=== PATIENT | male | born 1945 | race Caucasian/White ===

== ENCOUNTER → 2016-09-27 | Outpatient (CLI) | payer MEDICARE | END | disposition home or self-care (01) | LOC: GMAB 10:25 | PROVIDERS: ATTEND Family Medicine | DX: Z12.5 Encounter for screening for malignant neoplasm of prostate (principal); I10 Essential (primary) hypertension; Z85.038 Personal history of other malignant neoplasm of large intestine; Z77.21 Contact with and (suspected) exposure to potentially hazardous body fluids | CPT/HCPCS: 82378; 84443; 86803; G0103 ==

== ENCOUNTER → 2017-10-02 | Outpatient (CLI) | payer MEDICARE | LOC: GMAB 12:11 | PROVIDERS: ATTEND Family Medicine | DX: N40.0 Benign prostatic hyperplasia without lower urinary tract symptoms (principal); E04.1 Nontoxic single thyroid nodule; Z85.038 Personal history of other malignant neoplasm of large intestine; I10 Essential (primary) hypertension; E78.2 Mixed hyperlipidemia ==

== ENCOUNTER → 2017-10-13 | Outpatient (CLI) | payer MEDICARE, OTHER ==
--- NOTE | 2017-10-15 16:26 | CT ---
PROCEDURE: CT LUNG CANCER SCREENING CLINICAL HISTORY: Screening visit personal history of tobacco use. 72-year-old male., Lung cancer screening, COMPARISON: Noncontrast chest CT scan 09/22/2015. TECHNIQUE: kVp: 120 mA: 45 DLP: 72.99 FINDINGS: Exam parameters: Diagnostic quality: Satisfactory. Comments: None. Lung nodules: Present, multiple bilaterally detailed below. Nodule #1: Right lung 5.2 mm, solid, unchanged image # 91 Nodule #2: : Left lung 3.7 mm, solid, increased image # 97 Nodule #3: : Right lung 5.0 mm, solid, unchanged image # 72 Nodule #4: : Right 6.3 mm, solid, unchanged image # 73 Nodule #5: Right 3.8 mm, groundglass, increased image # 35 Nodule #6: : Right 2.9 mm, solid, unchanged image # 38 Nodule #7 : Right 3.1 mm, solid, unchanged image # 58 Nodule #8 : Right 2.9 mm, solid, unchanged image # 59 Nodule #9 : Right 3.8 mm, solid, unchanged image # 63 Nodule #10 : Right 4.4 mm, solid, unchanged image # 66 Nodule #11 : Right 4.4 mm, solid, unchanged image # 71 Nodule #12: : Right 2.3 mm, semisolid, unchanged image # 75 Lungs: COPD: Moderate Fibrosis: Mild. Lymph nodes: Nodules #4, 9, 10, and 11 are most likely intrafissural lymph nodes. Other findings: 4.3 mm calcified nodule with no definite soft tissue component in the superior lingula, lateral subpleural location Right pleural space: Effusion: None Calcifications: None Thickening: Mild Pneumothorax: None Left pleural space: Effusion: None Calcifications: None Thickening: Mild Pneumothorax: None Heart: Heart size: Normal Coronary calcification: Moderate Pericardial effusion: None Other findings: Upper abdomen: Atherosclerotic calcifications in the aorta and major branch vessels. Also intrarenal bilateral kidneys. Gallbladder visualized. Normal size and density of the spleen and adrenal glands. No subpleural peritoneal fluid. Thorax: No large soft tissue masses. Subclinical lymph nodes lungs and mediastinum. Base of neck: None. Impression: Emphysematous changes in the lungs bilaterally with predominantly pleural-based blebs and bulla. Multiple nodules right lung. One nodule in the left lower lobe. Minimal fibrosis and volume loss in the left upper lobe and lower lobe. 2 new nodules (# 2 and # 5) which may have been present on the prior study but not visualized due to larger slice thickness. Both of these nodules are less than 4 mm mean diameter. LUNG RADS: Category 2S: BENIGN APPEARANCE or behavior. Nodules with a very low likelihood of becoming a clinically active cancer due to size or lack of growth. Findings include solid nodules < 6 mm or new nodule < 4 mm. Part solid nodule(s) < 6 mm total diameter on baseline screening (which is the average of all three dimensions). Non-solid groundglass nodule(s) < 20 mm or >= 20 mm and unchanged or slowly growing. Category three or four nodules that are unchanged for >= 3 months. MANAGEMENT: Continue annual screening with low dose CT in 12 months. Modifier: Moderate coronary artery calcifications. MANAGEMENT: Consider CT calcium scoring examination and/or cardiology consult. Electronically signed by: Leobardo Landeros MD 10/15/2017 4:25 PM CDT
== END ==
LOC: CT 09:00
PROVIDERS: ATTEND Family Medicine
DX: Z87.891 Personal history of nicotine dependence (principal); R91.8 Other nonspecific abnormal finding of lung field; I70.0 Atherosclerosis of aorta

== ENCOUNTER → 2018-10-15 | Outpatient (CLI) | payer MEDICARE, OTHER | LOC: EDSTATUS 12:07 → GMAM 12:10 | PROVIDERS: ATTEND Family Medicine | DX: C18.9 Malignant neoplasm of colon, unspecified (principal); I10 Essential (primary) hypertension; E04.1 Nontoxic single thyroid nodule; N40.0 Benign prostatic hyperplasia without lower urinary tract symptoms; R73.9 Hyperglycemia, unspecified; E78.2 Mixed hyperlipidemia ==

== ENCOUNTER → 2018-10-23 | Outpatient (CLI) | payer MEDICARE, OTHER ==
--- NOTE | 2018-10-23 20:11 | CT ---
Procedure: CT LUNG SCREENING Exam Date: 10/23/2018. Ordering Provider: Johnnie Montemayor Clinical Indication: ANNUAL SCREENING FOR SMOKER 62 pack years. Cigarette smoking cessation 7 months. This patient meets eligibility criteria for low-dose CT lung cancer screening. Comparison: CT scan chest without IV contrast 10/13/2017. Technique: Using a multislice scanner, sequential helical axial imaging was obtained in the thorax, 2.5 mm thickness, 2.5 mm separation, from the level of the thoracic inlet through the lung bases without IV contrast. A low dose protocol was utilized for BMI less than 30: BMI: 27.4.. CTDI: 1.76 mGy. 120. kVp. 45 mA. DLP 65.06 mGy-centimeters. 2D sagittal and coronal reconstructed images, 6.0 mm thickness, were obtained. This exam was performed according to our departmental dose optimization program which includes use of automated exposure control, adjustment of the mA and/or kV according to patient size and/or use of iterative reconstruction technique. Nodule measurements under 10 mm are given as mean value of 3 axes diameters. FINDINGS: Lungs and large airways: There are scattered bilateral dilated airspaces more prevalent in the upper lung toribio. Pleural parenchymal scarring in the inferior lingula and the left lower lobe. Bilateral posterior dependent atelectasis in the lung bases. 4 mm solid subpleural nodule in the medial right lower lobe on axial series 2, image 86. Stable since the prior study. 3 Nodules which are similar in size, and unchanged on the mid right major fissure, and 2 nodules which are stable on the horizontal fissure. Triangular-shaped 4 mm solid nodule in the subpleural right middle lobe, on image 2/69 is unchanged from the prior study. Calcified nodule lateral lingula is also stable. Pleura and space: Bilateral focal pleural thickening. Bilateral pleural-based blebs and bulla abutting the anterior pleural reflection at the level of the trachea stable. No pleural effusion or pneumothorax bilaterally. Pleural calcification anterior lateral pleura abutting the lingula. Mediastinum and nate: evaluation limited by low dose technique and lack of IV contrast. Small lymph nodes. No dominant soft tissue masses. Heart and great vessels: Atherosclerotic calcifications in the coronary arteries and aortic arch and brachiocephalic vessels. VAD tip in the mid superior vena cava. A subclavian access. Chest wall, lower neck, axillae: Evaluation also limited by same factors as described above. Normal sized lymph nodes. VAD injection port upper anterior left subcutaneous chest wall. Upper abdomen: Evaluation limited by low-dose technique. No free air or free fluid in the included peritoneal space. Atherosclerotic calcifications aorta and renal artery branch vessels as well as splenic artery branches. Gallbladder partially visualized. Osseous structures: Evaluation limited by low dose MIP technique. Mild scoliosis and spondylosis in the thoracic spine. Minimal spondylosis. Minimal arthrosis in the manubrial sternal margin. IMPRESSION: . Fissural nodules in the right lung. 4 mm solid subpleural nodule medial right lower lobe. 4 mm nodule right middle lobe also stable. Minimal emphysematous changes in the lungs. No abnormal nodule, no enlarging nodule, no mass, and no focal infiltrate. [facility] Best Practice recommendations: Please see below for Lung RADS category and FOLLOW-UP.* *Lung RADS category CATEGORY 2- Nodules with a very low likelihood (less than 1%) of becoming a clinically active cancer due to size or lack of growth. Nodules: Perifissural nodule(s) < 10 mm. (526mm3). Solid or part solid nodule(s) less than 6mm (113.1 mm3), new solid nodule less than 4mm (33.5 mm3). Ground glass nodule(s) less than 30mm (84571.2 mm3) or unchanged or slow growing ground glass nodule 30mm or greater. Cat 3 or 4 nodule unchanged for 3 or more months. FOLLOW-UP: Continue annual screening with a Low Dose Chest CT in 12 months for re-evaluation. Electronically signed by: Leobardo Landeros MD 10/23/2018 8:09 PM CDT
== END ==
LOC: CT 08:00
PROVIDERS: ATTEND Family Medicine
DX: Z87.891 Personal history of nicotine dependence (principal); R91.8 Other nonspecific abnormal finding of lung field

== ENCOUNTER → 2018-12-03 | Outpatient (CLI) | payer MEDICARE ==
--- NOTE | 2018-12-03 17:05 | US ---
EXAM DESCRIPTION: Extremity,Lower Wie Arteries: Ultrasound. CLINICAL HISTORY: PVD COMPARISON: None. TECHNIQUE: Doppler evaluation of the bilateral lower extremity arterial flow waveforms and velocities. FINDINGS: Arterial waveforms in the right lower extremity are biphasic from the right common femoral artery through the right posterior tibial artery. Right dorsalis pedis artery is monophasic.. Arterial waveforms in the left lower extremity are biphasic left common femoral artery through the left peroneal artery. Some of the left CREDIT REPORTER waveforms appear biphasic, others monophasic. Left DPA monophasic.. Comments: Atherosclerotic occlusive disease affecting the left lower extremity more than right. IMPRESSION: Atherosclerotic occlusive disease in the bilateral lower extremities below the knees, affecting the left lower extremity more than the right. Consider CTA lower extremities if these findings are discordant with clinical findings. Electronically signed by: Leobardo Landeros MD 12/03/2018 5:04 PM CDT
== END ==
LOC: US 09:51
PROVIDERS: ATTEND Family Medicine
DX: I73.9 Peripheral vascular disease, unspecified (principal)

== ENCOUNTER → 2018-12-13 | Outpatient (CLI) | payer MEDICARE ==
--- NOTE | 2018-12-13 17:09 | CT ---
EXAM DESCRIPTION: CTA Runoff: Computed Tomography. CLINICAL HISTORY: ATHEROSCLEROTIC HEART DISEASE abnormal findings bilateral lower extremity arterial Doppler study. COMPARISON: Bilateral lower extremity arterial Doppler ultrasound November 2018. TECHNIQUE: CT angiography of the abdominal aorta and both lower extremities is performed during rapid bolus administration of 100 mL Optiray 320 nonionic IV contrast media. Three-dimensional volume-rendering imaging is reviewed along with 2.5 x 2.5 mm source images, and 2.0 mm coronal and sagittal reformats. Total Exam DLP: 1340.41 mGy-cm. This exam was performed according to our departmental CT dose-optimization program which includes automated exposure control, adjustment of the mA and/or kV according to patient size and/or use of iterative reconstruction technique; to reduce radiation dose to as low as reasonably achievable (ALARA). FINDINGS: Upper abdominal aorta: Calcification of the ostium of the celiac axis but no significant narrowing. Minimal intimal thickening of the ostium of the SMA. Minimal calcification in the aorta. Mid-abdominal aorta: Moderate atherosclerotic calcification and intimal wall thickening with calcification of the bilateral renal artery ostia. Right main renal artery and more inferior accessory renal artery with single right renal artery. Small ulcerations right lateral aspect opposite the accessory origin. Distal abdominal aorta: Ulcerations and channeling of the infrarenal segment mostly posterior from the origin of the left accessory renal artery to the origin of the DESIREE. Anterior channel measures 11 x 8 mm and posterior channel 15 x 10 mm with overall dimension of the outer garcia 2.3 x 2.0 cm. This segment measures just under 3 cm length. Calcification of the origin of the DESIREE but no occlusion or poststenotic dilation. Just above the bifurcation, the outer wall is 1.5 x 1.4 cm and inner wall is 1.3 x 0.9 cm. The remainder of the infrarenal aorta to the bifurcation shows a single channel. Common iliacs: Moderate atherosclerotic calcification bilaterally. Approximately 60% diameter stenosis of the left common iliac artery approximately 4 cm from the bifurcation and proximal to the common iliac bifurcation. Approximately 40% diameter stenosis of the proximal right common iliac artery. Internal iliacs: Severe calcification and stenosis of the left branch with contrast in the posterior vessel near the obturator foramen most likely collateral flow. Approximately 50% stenosis of the proximal right vessel. Bilateral external iliac artery: 20-50% diameter stenosis on the right. Similar degree of stenosis on the left. DECK HAND: 25-50% diameter stenosis mostly distal. Similar on the left. SFA: 50% diameter stenosis at the right origin . Varying degrees of diameter stenosis along the length, with approximately 80% diameter stenosis distally, 18 cm above the intracondylar notch of the femur, with abundant calcifications but no complete occlusion in the entire vessel. Approximately 70% diameter stenosis at the left origin. 50% diameter stenosis at the junction of the distal third and middle third, slightly superior to the level of the right severe diameter stenosis, with abundant calcification. No complete occlusion in the entire vessel. Right popliteal: 50% diameter stenosis on the right at the midpoint. 40% diameter stenosis in the proximal segment of the left vessel. Right trifurcation vessels: atherosclerotic calcifications proximally with moderate stenosis. Occasional calcification in the right anterior tibial artery with fair runoff into the right ankle and the right dorsalis pedis. Moderate atherosclerotic calcification in the proximal and mid right posterior tibial artery with complete occlusion above the ankle. Right Peroneal artery persists into the ankle and courses posterior medial most likely providing collateral flow Left trifurcation vessels: Mild to moderate stenosis at the proximal left trifurcation and also in the proximal left PAUL. Intermittent calcification, with fair distal runoff into the ankle and right dorsalis pedis artery. Moderate calcification proximal right [employer] with fair runoff into the posterior ankle, medial to the calcaneus. Right peroneal artery persists to the posterior ankle with fair runoff lateral to the calcaneus. Other: Fatty liver. 4 mm stone in the inferior collecting system of the right kidney. Bilateral atherosclerotic renal calcifications. Spondylosis and disc desiccation with gas formation at L4-5 and L5-S1. Bilateral small fatty inguinal hernias not containing bowel. Hydrocele in the right scrotum. IMPRESSION: 1. Ulceration and shadowing of the aorta at the level of the accessory left renal artery is slightly more distally. No aneurysm and no significant stenosis. 2. 60% diameter stenosis of the left common iliac artery 4 cm from the bifurcation. 40% diameter stenosis of the proximal right common iliac artery. Almost complete stenosis of the left internal iliac artery with poor flow distally in the pelvis. 3. Approximately 70% diameter stenosis at the origin of the left SFA. 50% diameter stenosis projection of the distal and middle third. 50% diameter stenosis proximal right SFA origin. 80% diameter stenosis distal right SFA, similar level as the left SFA distal stenosis. 4. Complete occlusion of the right [employer] above the ankle. Collateral flow in the plantar foot from the persistent right peroneal artery. Fair runoff from the right PAUL into the right DPA. 5. Varying degrees of flow in stenosis in the left trifurcation vessels with all 3 vessels demonstrating contrast flow into the foot. Electronically signed by: Leobardo Landeros MD 12/13/2018 5:07 PM CDT
== END ==
LOC: CT 08:34
PROVIDERS: ATTEND Family Medicine
DX: I25.10 Atherosclerotic heart disease of native coronary artery without angina pectoris (principal); I70.213 Atherosclerosis of native arteries of extremities with intermittent claudication, bilateral legs; I70.8 Atherosclerosis of other arteries; Z79.899 Other long term (current) drug therapy

== ENCOUNTER 2019-08-11 13:26 | Emergency (ER) | payer MEDICARE ==
[2019-08-11] MEDS ORDERED: SODIUM CHLORIDE 0.9% (FLUSH) 10 ML SYG IV PRN (13:40)
[2019-08-11] MEDS ORDERED: SODIUM CHLORIDE 0.9% 1000ML 1,000 ML IVS ONE (13:41)
--- NOTE | 2019-08-11 14:26 | ED.PDOC ---
History of Present Illness - General Chief Complaint: Blood Pressure Problem Stated Complaint: Dizzy, Fatigued, Low Blood Pressure Time Seen by Provider: 08/11/19 13:40 Source: patient, RN notes reviewed, Vital Signs reviewed, family - Sister, RN/MD - Patient sent from Dr. Perales's office with records due to fatigue and low blood pressure. Exam Limitations: no limitations - History of Present Illness Initial Comments: Patient is a 74-year-old white male who presents from his doctor's office with complaints of ongoing diarrhea, dizziness, fatigue and generalized malaise. This is been going on for a week, worsening, patient without appetite. Patient denies any pain. The fatigue and dizziness is worse when he gets up or tries to walk around. Better when he lays down and rests. There is no apparent cause for the symptoms. The diarrhea has been chronic and ongoing since he had colon cancer in 2004, but is worse this week. Patient denies any headaches, chest geo n, shortness of breath, nausea, vomiting, hearing difficulties. Patient denies any vision changes. He does complain of dizziness, diarrhea and generalized malaise and fatigue. Timing/Duration: 1 week, getting worse Severity: moderate Improving Factors: rest Worsening Factors: movement Associated Symptoms: loss of appetite, malaise, weakness Allergies/Adverse Reactions: Allergies NO KNOWN ALLERGY Allergy (Verified 08/11/19 13:50) Home Medications: Ambulatory Orders Albuterol Inhaler [Ventolin Hfa Inhaler] 1 puff INH PRN PRN 08/11/19 Atorvastatin Calcium 40 mg PO DAILY 08/11/19 Clopidogrel Bisulfate 75 mg PO DAILY 08/11/19 Gabapentin 300 mg PO TID 08/11/19 HYDROcodone 10MG/APAP 325MG [[place] 10/325] 1 tab PO Q6HRS PRN 08/11/19 Losartan Potassium 100 mg PO DAILY 08/11/19 Metoprolol Tartrate 100 mg PO DAILY 08/11/19 amLODIPine BESYLATE [Norvasc] 5 mg PO BID 08/11/19 Review of Systems - Review of Systems Constitutional: States: see HPI, malaise, weakness. Denies: chills, fever EENTM: States: no symptoms reported. Denies: eye pain, blurred vision, double vision Respiratory: States: no symptoms reported. Denies: cough, short of breath, stridor, wheezing Cardiology: States: no symptoms reported. Denies: chest pain, palpitations, syncope Gastrointestinal/Abdominal: States: see HPI, diarrhea. Denies: abdominal pain, nausea, vomiting Genitourinary: States: no symptoms reported Musculoskeletal: States: no symptoms reported. Denies: back pain, neck pain Skin: States: no symptoms reported. Denies: change in color, rash Neurological: States: see HPI, weakness. Denies: tingling, tremors Endocrine: States: no symptoms reported Hematologic/Lymphatic: States: no symptoms reported All other Systems: No Change from Baseline Past Medical History (General) - Patient Medical History Hx Seizures: No Hx Stroke: No Hx Dementia: No Hx Asthma: No Hx of COPD: Yes Hx Cardiac Disorders: No Hx Congestive Heart Failure: No Hx Pacemaker: No Hx Hypertension: Yes Hx Thyroid Disease: No Hx Diabetes: No Hx Gastroesophageal Reflux: Yes Hx Renal Disease: No Hx Cancer: Yes - Colorectal Hx of HIV: No Hx Hepatitis C: No Hx MRSA: No Surgical History: colectomy, other - Vaccination History Hx Influenza Vaccination: Yes Hx Pneumococcal Vaccination: Yes - Social History Hx Tobacco Use: Yes Hx Alcohol Use: Yes - Female History Patient is a Female of Child Bearing Age (10 -59 yrs old): No Family Medical History - Family History Mother Family History: Unknown Living Status: Unknown Physical Exam - Physical Exam General Appearance: Alert, Comfortable, Well Developed, Well Groomed, Well Hydrated, Well Nourished Eye Exam: bilateral normal Ears, Nose, Throat: hearing grossly normal, normal ENT inspection, normal pharynx Neck: non-tender, full range of motion, supple, normal inspection Respiratory: chest non-tender, lungs clear, normal breath sounds, no respiratory distress, no accessory muscle use Cardiovascular/Chest: normal peripheral pulses, no edema, bradycardia - In the low 50s, other - Patient with a PowerPort in his anterior left chest wall Peripheral Pulses: radial,right: 2+, radial,left: 2+ Gastrointestinal/Abdominal: normal bowel sounds, non tender, soft, no organomegaly Back Exam: normal inspection, no CVA tenderness, no vertebral tenderness Extremity: normal range of motion, non-tender, normal inspection, no pedal edema Neurologic: induction coordination engineer II-XII nml as tested, no motor/sensory deficits, alert, normal mood/affect, oriented x 3 Skin Exam: normal color, warm/dry Lymphatic: no adenopathy Progress - Progress Progress: Differential diagnosis: Medication reaction, acute SD, dehydration, electrolyte abnormalities among others. 08/11/19 14:36 Awaiting on results of chest x-ray and remainder of labs. At this point patient is feeling much better after the 1 L normal saline and is asking to go home. Review of his last CT scan shows multiple pulmonary nodules, but no effusions. The CT of the chest done in October [address] of the chest in 1 year. I will discuss this with the patient and his sister and remind them to follow-up with her PCP for scheduling of this chest CT in the next 2 months. 08/11/19 14:40 Chest x-ray read by radiology shows that he is got a small left pleural effusion. They do note this represents atelectasis versus pneumonia. I doubt pneumonia at this time as patient is afebrile, no white count with no left shift. Patient does have some significant renal insufficiency which will need further evaluation and follow-up by his PCP. There is nothing to be done acutely at this time I am recommending follow-up in the next week with his PCP for repeat lab tests to see if the hydration with the IV fluids has improved his renal function. Due to the fact that the patient is feeling much better after IV fluids, plan on discharge home at this time. I have discussed this plan of care with the patient and his sister and they voiced understanding and agreement. Destin Portillo M.D. #[id number] - Results/Orders Results/Orders: EKG performed on 11 Aug 2019 at 1355 hrs.: Sinus bradycardia 52 bpm, right bundle branch block, abnormal EKG, no acute ST changes or indications of ischemia. No previous EKG available for comparison at this time. EXAM: XR Chest, 1 View CLINICAL HISTORY: hypotension TECHNIQUE: Frontal view of the chest. COMPARISON: 10/23/2018. FINDINGS: Lungs: There is consolidation in the left lung base. Pleural space: There is small left pleural effusion. No pneumothorax. Heart: Prominent cardiac shadow unchanged. Mediastinum: Unremarkable. Bones/joints: Unremarkable. Tubes, lines and devices: Left subclavian central port terminates in the proximal SVC. Upper abdomen: No free air noted under the diaphragm. IMPRESSION: Small left pleural effusion and left basilar atelectasis or pneumonia. Follow-up until resolution needed. Electronically signed by: Jeannine Kimball MD 08/11/2019 2:33 PM 08/11/19 13:40 Sodium Chloride 0.9% (Flush) [Saline Flush Syringe] 3 ml IV PRN PRN 08/11/19 13:41 Sodium Chloride 0.9% 1000ML [Ns 1000 ml] 1,000 ml IVS ONCE 08/11/19 13:45 EKG STAT Laboratory Results - last 24 hr 08/11/19 13:40 WBC 7.7 RBC 3.18 L Hgb 10.8 L Hct 30.2 L MCV 94.8 H MCH 33.8 H MCHC 35.7 RDW 12.8 Plt Count 180 MPV 8.6 Absolute Neuts (auto) 6.10 Absolute Lymphs (auto) 0.60 L Absolute Monos (auto) 0.80 Absolute Eos (auto) 0.20 Absolute Basos (auto) 0.00 Neutrophils % 78.6 H Lymphocytes % 8.0 L Monocytes % 10.4 H Eosinophils % 2.6 Basophils % 0.4 PT 10.6 INR 1.07 PTT (SP) 32.1 H Sodium 127 L Potassium 3.6 Chloride 98 L Carbon Dioxide 19 L Anion Gap 13.6 BUN 34 H Creatinine 3.57 H BUN/Creatinine Ratio 9.5 L Random Glucose 128 H Serum Osmolality 264.5 L Calcium 8.0 L Magnesium 1.8 Creatine Kinase 38 CK-MB (CK-2) 1.8 CK-MB (CK-2) % Not Reportable Troponin I < 0.02 B-Natriuretic Peptide 39.0 - EKG/XRAY/CT CT Ordered: No Departure - Departure Clinical Impression: Malaise and fatigue, Symptomatic bradycardia, Chronic renal insufficiency, stage III (moderate) Anemia in chronic kidney disease (CKD) Qualifiers: Chronic kidney disease stage: stage 3 (moderate) Qualified Code(s): N18.3 - Chronic kidney disease, stage 3 (moderate); D63.1 - Anemia in chronic kidney disease Time of Disposition: 14:44 Disposition: Discharge to Home or Self Care Condition: Fair Departure Forms: ED Discharge - Pt. Copy, Patient Portal Self Enrollment Instructions: DI for Hypotension, Dehydration, Adult (DC), Fatigue (DC), Generalized Weakness (DC), Chronic Kidney Disease (DC), Anemia of Chronic Disease Diet: resume usual diet Activity: increase activity as tolerated Referrals: Severo Lua MD [Primary Care Provider] - 1-5 Days Home Medications: Ambulatory Orders Albuterol Inhaler [Ventolin Hfa Inhaler] 1 puff INH PRN PRN 08/11/19 Atorvastatin Calcium 40 mg PO DAILY 08/11/19 Clopidogrel Bisulfate 75 mg PO DAILY 08/11/19 Gabapentin 300 mg PO TID 08/11/19 HYDROcodone 10MG/APAP 325MG [[place] 10/325] 1 tab PO Q6HRS PRN 08/11/19 Losartan Potassium 100 mg PO DAILY 08/11/19 Metoprolol Tartrate 100 mg PO DAILY 08/11/19 amLODIPine BESYLATE [Norvasc] 5 mg PO BID 08/11/19
--- NOTE | 2019-08-11 14:34 | RAD ---
EXAM: XR Chest, 1 View CLINICAL HISTORY: hypotension TECHNIQUE: Frontal view of the chest. COMPARISON: 10/23/2018. FINDINGS: Lungs: There is consolidation in the left lung base. Pleural space: There is small left pleural effusion. No pneumothorax. Heart: Prominent cardiac shadow unchanged. Mediastinum: Unremarkable. Bones/joints: Unremarkable. Tubes, lines and devices: Left subclavian central port terminates in the proximal SVC. Upper abdomen: No free air noted under the diaphragm. IMPRESSION: Small left pleural effusion and left basilar atelectasis or pneumonia. Follow-up until resolution needed. Electronically signed by: Jeannine Kimball MD 08/11/2019 2:33 PM CDT
[2019-08-11 14:37] VITALS: BP 106/56
[2019-08-11 14:52] VITALS: TEMP 97.7; O2SAT 97
== END 2019-08-11 14:52 | disposition home or self-care (01) ==
LOC: ER 13:26
DX: R53.83 Other fatigue (principal); R91.1 Solitary pulmonary nodule; R19.7 Diarrhea, unspecified; J90 Pleural effusion, not elsewhere classified; N18.3 Chronic kidney disease, stage 3 (moderate); I12.9 Hypertensive chronic kidney disease with stage 1 through stage 4 chronic kidney disease, or unspecified chronic kidney disease; D63.1 Anemia in chronic kidney disease; Z85.038 Personal history of other malignant neoplasm of large intestine; J44.9 Chronic obstructive pulmonary disease, unspecified; R00.1 Bradycardia, unspecified; F17.200 Nicotine dependence, unspecified, uncomplicated
CPT/HCPCS: 36415; 71045; 80048; 82550; 82553; 83880; 84484; 85025; 85610; 85730; 93005; J7030

== ENCOUNTER → 2019-08-14 | Outpatient (CLI) | payer MEDICARE | LOC: GMAM 10:59 | PROVIDERS: ATTEND Family Medicine | DX: E53.8 Deficiency of other specified B group vitamins (principal); D64.9 Anemia, unspecified; R53.83 Other fatigue; E78.2 Mixed hyperlipidemia ==

== ENCOUNTER → 2020-01-21 | Outpatient (CLI) | payer MEDICARE, OTHER | LOC: NC 13:46 | PROVIDERS: ATTEND Family Medicine | DX: I12.9 Hypertensive chronic kidney disease with stage 1 through stage 4 chronic kidney disease, or unspecified chronic kidney disease (principal); N18.30 Chronic kidney disease, stage 3 unspecified; D63.1 Anemia in chronic kidney disease ==

== ENCOUNTER → 2020-01-23 | Outpatient (CLI) | payer MEDICARE ==
--- NOTE | 2020-01-24 07:57 | MRI ---
EXAM DESCRIPTION: Brain w/o Contrast: MRI. 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 TECHNIQUE: Multiplanar, high-field MRI unit, multiple diffusion sequences, multiple conventional sequences without contrast. FINDINGS: Striated hyperintense T2-weighted signal, most notable in the periventricular white matter bilateral occipital lobes, at the level of the posterior ventricles and minimally visible in frontal parietal and occipital lobes, in the centrum semiovale bilaterally toward the vertex. On FLAIR sequences this is seen as diffuse hyperintensity. Also bilateral focal subcortical white matter T2 and FLAIR hyperintensity in the frontal and parietal lobes bilaterally. No hemorrhage, no cerebral edema, no midline shift.. No punctate microhemorrhages on T2*gradient sequence. Normal signal in the bilateral basal ganglia. Normal signal in the brainstem and cerebellar hemispheres. No hemorrhage, no cerebral edema, no mass-effect. Concordance of the diffusion and non-diffusion sequences with no diffusion restriction. Cortical sulci, ventricles, and other CSF spaces, and the subdural spaces are minimally prominent for patient's age. No effacement or displacement. No midline shift. No extra-axial hemorrhage. Normal flow signal void in the major vessels of the [place], and the venous sinuses. IACs are symmetric bilaterally. Increased fluid signal in the bilateral mastoid air cells. No mass effect in the bilateral cerebellopontine angles. Pituitary gland occupies most of the sella. Base of the cerebellar tonsils is at the level of the foramen magnum. Minimal mucoperiosteal thickening in the paranasal sinuses. The bony calvarium is intact. IMPRESSION: 1. Striated appearance of the periventricular white matter in the bilateral occipital lobes at the level of the posterior ventricles and in the bilateral centrum semiovale extending toward the vertex in the frontal parietal and occipital lobes bilaterally. Not associated with multiple white matter microhemorrhages. Minimal cortical atrophy. No cerebral edema, no diffusion restriction. Could be related to vasculitis or early cerebral amyloid angiopathy. Focal white matter changes most likely related to cerebral microvascular disease/aging. Consider neurology consult. 2. Normal noncontrast MRI diffusion study with no evidence of significant ischemia or acute or subacute infarction. 3. Minimal chronic paranasal sinusitis. Inflammatory changes in the mastoid air cells. Electronically signed by: Leobardo Landeros MD 01/24/2020 7:55 AM CDT
== END ==
LOC: MRI 08:04
PROVIDERS: ATTEND Family Medicine
DX: I65.23 Occlusion and stenosis of bilateral carotid arteries (principal); I69.351 Hemiplegia and hemiparesis following cerebral infarction affecting right dominant side; J32.9 Chronic sinusitis, unspecified; H70.90 Unspecified mastoiditis, unspecified ear; R90.82 White matter disease, unspecified; G31.9 Degenerative disease of nervous system, unspecified

== ENCOUNTER → 2020-01-24 | Outpatient (CLI) | payer MEDICARE | LOC: ECHO 07:53 | PROVIDERS: ATTEND Family Medicine | DX: I25.10 Atherosclerotic heart disease of native coronary artery without angina pectoris (principal); I51.7 Cardiomegaly; I50.30 Unspecified diastolic (congestive) heart failure ==

== ENCOUNTER → 2020-01-27 | Outpatient (CLI) | payer MEDICARE ==
--- NOTE | 2020-01-28 11:51 | US ---
EXAM DESCRIPTION: Carotid Duplex: ULTRASOUND. CLINICAL HISTORY: 74 years Male OCCLUSION AND STENOSIS OF BILAT. CAROTID ARTERIES COMPARISON: None. TECHNIQUE: Transcutaneous scanning utilizing estrada-scale and Doppler modes to evaluate the bilateral carotid systems and vertebral arteries. Percentage of diameter of stenosis or no stenosis recorded will be based upon NASCET criteria. FINDINGS: Peak systolic/end diastolic velocities (CM-Sec) CCA Right 87/13 Left 84/13. ICA Right proximal 76/15, mid 81/20. Left proximal 48/12, Distal 9/19. Vertebral Right 32/6 Left 46/8. ECA (PS Only) Right 68 left 88. ICA/CCA peak systolic velocity ratio: Right 0.9 Left 1.1 ICA/CCA end diastolic velocity ratio: Right 1.6 Left 1.5 Vertebral arteries: antegrade flow. Comments Comments: Bilateral atherosclerotic calcifications. Diameter and area stenosis in the right carotid system less than 35%. Diameter and area stenosis in the left carotid system less than 45%. Spectral broadening in the left ICA. IMPRESSION: 1. Doppler evaluation of the bilateral carotid systems and vertebral arteries shows no hemodynamically significant stenoses (less than 70%). 2. Moderate amount of plaque in the carotid arteries bilaterally. Bilateral vertebral arteries showed antegrade-cephalad flow. Electronically signed by: Leobardo Landeros MD 01/28/2020 11:49 AM CDT
== END ==
LOC: US 08:39
PROVIDERS: ATTEND Family Medicine
DX: I65.23 Occlusion and stenosis of bilateral carotid arteries (principal); I69.351 Hemiplegia and hemiparesis following cerebral infarction affecting right dominant side

== ENCOUNTER → 2020-01-30 | Outpatient (CLI) | payer MEDICARE | LOC: NC 14:11 | PROVIDERS: ATTEND Family Medicine | DX: E53.8 Deficiency of other specified B group vitamins (principal); N18.9 Chronic kidney disease, unspecified; D63.1 Anemia in chronic kidney disease; M48.061 Spinal stenosis, lumbar region without neurogenic claudication; M62.81 Muscle weakness (generalized); G62.9 Polyneuropathy, unspecified; K21.9 Gastro-esophageal reflux disease without esophagitis ==